=== PATIENT | female | born 1960 | race Caucasian/White ===

== ENCOUNTER 2017-09-02 16:45 | Emergency (ER) | payer MEDICAID ==
[2017-09-02 16:50] VITALS: BP 150/79; PULSE 88; RESP 18; TEMP 98.2; O2SAT 100
--- NOTE | 2017-09-02 17:38 | C.PDOC ---
History Of Present Illness 57 y/o female brought to ER by daughter complaining of left ankle pain s/p trip and fall a few days ago. Patient states that her ankle is still swollen. Patient denies having weakness and numbness. Time Seen by Provider: 09/02/17 16:58 Chief Complaint (Nursing): Lower Extremity Problem/Injury History Per: Patient History/Exam Limitations: no limitations Onset/Duration Of Symptoms: Days Current Symptoms Are (Timing): Still Present Past Medical History Reviewed: Historical Data, Nursing Documentation, Vital Signs Vital Signs: Last Vital Signs Temp 98.2 F 09/02/17 16:48 Pulse 88 09/02/17 16:48 Resp 18 09/02/17 16:48 BP 150/79 09/02/17 16:48 Pulse Ox 100 09/02/17 19:30 - Medical History PMH: No Chronic Diseases Surgical History: No Surg Hx Family History: States: No Known Family Hx - Social History Hx Alcohol Use: No Hx Substance Use: No - Immunization History Hx Tetanus Toxoid Vaccination: No Hx Influenza Vaccination: No Hx Pneumococcal Vaccination: No Review Of Systems Except As Marked, All Systems Reviewed And Found Negative. Musculoskeletal: Positive for: Other (left ankle pain) Neurological: Negative for: Weakness, Numbness Physical Exam - Physical Exam Appears: Non-toxic, No Acute Distress Skin: Normal Color, Warm, Dry Head: Atraumatic, Normacephalic Eye(s): bilateral: Normal Inspection Nose: Normal Oral Mucosa: Moist Neck: Supple Chest: Symmetrical Extremity: Normal ROM, Tenderness (tenderness to left medial and lateral malleolus ), Swelling (swelling to left medial and lateral malleolus) Neurological/Psych: Oriented x3, Normal Speech ED Course And Treatment O2 Sat by Pulse Oximetry: 100 (RA) Pulse Ox Interpretation: Normal - Other Rad X-Ray- Left Ankle X-Ray: Viewed By Me, Read By Radiologist Interpretation: Date of service: 09/02/2017. PROCEDURE: Left Ankle Radiographs. HISTORY: twisted ankle 3 days ago. COMPARISON: None. FINDINGS : BONES: Bone alignment and mineralization are normal. There is no acute displaced fracture or bone destruction. There is a small plantar calcaneal spur. JOINTS: Normal. Ankle mortise maintained. Talar dome intact. SOFT TISSUES: There is moderate periarticular soft tissue swelling. OTHER FINDINGS : None. IMPRESSION: No acute fracture or dislocation. Medical Decision Making Medical Decision Making: Impression: Left Ankle Sprain Plan: --Motrin PO --X-Ray- Left Ankle Updates: X-Ray- Left Ankle is negative for fracture. Patient has been discharged and instructed to follow up with PMD. Disposition Counseled Patient/Family Regarding: Studies Performed, Diagnosis, Need For Followup, Rx Given - Disposition Referrals: Johnny Sewell MD [Staff Provider] - Disposition: HOME/ ROUTINE Disposition Time: 17:36 Condition: STABLE Prescriptions: Ibuprofen [Motrin] 1 tab PO TID PRN #30 tab PRN Reason: Pain Instructions: Ankle Sprain (DC) Forms: [facility] (Serbian), General Discharge Instructions - POA Present On Arrival: None - Clinical Impression Clinical Impression: Ankle sprain - Scribe Statement The provider has reviewed the documentation as recorded by the Dianeibmaribel Jade Provider Attestation: All medical record entries made by the Scribe were at my direction and personally dictated by me. I have reviewed the chart and agree that the record accurately reflects my personal performance of the history, physical exam, medical decision making, and the department course for this patient. I have also personally directed, reviewed, and agree with the discharge instructions and disposition.
--- NOTE | 2017-09-02 17:55 | RAD ---
Date of service: 09/02/2017 PROCEDURE: Left Ankle Radiographs. HISTORY: twisted ankle 3 days ago COMPARISON: None FINDINGS: BONES: Bone alignment and mineralization are normal. There is no acute displaced fracture or bone destruction. There is a small plantar calcaneal spur. JOINTS: Normal. Ankle mortise maintained. Talar dome intact SOFT TISSUES: There is moderate periarticular soft tissue swelling. OTHER FINDINGS: None. IMPRESSION: No acute fracture or dislocation.
== END 2017-09-02 17:40 | disposition home or self-care (01) ==
LOC: C.ER 16:45
DX: S93.402A Sprain of unspecified ligament of left ankle, initial encounter (principal); W01.0XXA Fall on same level from slipping, tripping and stumbling without subsequent striking against object, initial encounter; Y92.9 Unspecified place or not applicable